=== PATIENT | female | born 1995 | race Caucasian/White ===

== ENCOUNTER → 2018-09-23 | Outpatient (CLI) | payer OTHER ==
--- NOTE | 2018-09-23 14:55 | CT ---
EXAMINATION TYPE: CT abdomen pelvis w con DATE OF EXAM: 09/23/2018 COMPARISON: NONE HISTORY: 23-year-old female feels a mass around umbilicus x 1 year. Other intra-abdominal and pelvic swelling. TECHNIQUE: Contiguous axial scanning of the abdomen and pelvis following administration of 100 ml Iso zeus 300 IV contrast. Delayed images through the kidneys and coronal/sagittal reconstructions perform ed. CT DLP: 1046 mGycm Automated exposure control for dose reduction was used. FINDINGS: Heart normal size without pericardial effusion. Lung bases clear without pleural effusion. Liver enlarged measuring 20.8 cm there is marked in diminished attenuation. Portal venous system is p atent. No biliary ductal dilatation. Gallbladder, adrenal glands, right kidney, spleen with anterior splenule, and pancreas appear within normal limits. Extrarenal pelvis left kidney. No dilated small bowel, free fluid, or free air. No mesenteric or retroperitoneal lymphadenopathy. Normal appendix. Oral contrast progressed to the lower descending colon. No pericolonic inflammatory change. Moderate stool in the sigmoid colon. Bladder urine distended. Uterus and ovaries are visualized. No abnormal fluid collection in the pelvi s or pelvic lymphadenopathy. This seems to be an omental fat-containing midline supraumbilical hernia. This is very subtle but abhijit sures 2.4 cm wide and 3.7 cm craniocaudal. There is a pinhole 3 mm neck, referred to axial image 44 a nd sagittal image 36. No significant inflammatory changes are noted at this time. Some strandy densit y suspected to represent vessels. Bones: No osseous destructive process. IMPRESSION: 1. OMENTAL FAT-CONTAINING SUPRAUMBILICAL HERNIA. THE HERNIA SAC MEASURES 3.7 X 2.4 CM AND EXTENDS THR OUGH A PINHOLE 3 MM ABDOMINAL WALL DEFECT. 2. HEPATOMEGALY (20.8 CM) WITH MARKED HEPATIC STEATOSIS.
== END | disposition home or self-care (01) ==
LOC: RADCTMAIN 10:56
PROVIDERS: ATTEND Family Medicine
DX: K42.9 Umbilical hernia without obstruction or gangrene (principal); K76.0 Fatty (change of) liver, not elsewhere classified
CPT/HCPCS: 74177; Q9967

== ENCOUNTER → 2020-06-01 | Outpatient (CLI) | payer OTHER ==
--- NOTE | 2020-06-01 12:31 | CT ---
EXAMINATION TYPE: CT abdomen w con DATE OF EXAM: 06/01/2020 COMPARISON: Prior CT 09/23/2018 HISTORY: Abd pain CT DLP: 338.5 mGycm Automated exposure control for dose reduction was used. TECHNIQUE: Helical acquisition of images was performed from the lung bases through the top of iliac crest to include entire abdomen. CONTRAST: Performed with Oral Contrast and with IV Contrast, patient injected with 100 mL of Isovue 300. FINDINGS: Probable postop changes noted at the supraumbilical location, linear scar is present LUNG BASES: No significant abnormality is appreciated. LIVER/GB: The liver is enlarged. Liver low attenuation likely due to hepatic steatosis. Gallbladder i s normal. PANCREAS: No significant abnormality is seen. SPLEEN: No significant abnormality is seen. ADRENALS: No significant abnormality is seen. 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 BOWEL: No significant abnormality is seen. LYMPH NODES: No significant abnormality is appreciated. OSSEOUS STRUCTURES: No significant abnormality is seen. FREE AIR: No Free Air visible ASCITES: None visible. RETROPERITONEAL ADENOPATHY: No Retroperitoneal Adenopathy visible. OTHER: No abnormal fluid collections IMPRESSION: INTERVAL SURGERY, THERE COULD BE UNDERLYING FAT NECROSIS. HEPATIC STEATOSIS AND HEPATOMEGALY AGAIN NO ALYSSA.
== END | disposition home or self-care (01) ==
LOC: RADCTMAIN 09:24
PROVIDERS: ATTEND Family Medicine
DX: K76.0 Fatty (change of) liver, not elsewhere classified (principal); R16.0 Hepatomegaly, not elsewhere classified
CPT/HCPCS: 74160; Q9967